=== PATIENT | female | born 1960 | race Caucasian/White ===

== ENCOUNTER 2023-12-22 15:00 | Outpatient (CLI) | payer BC ==
[2023-12-22 16:47] LABS: Anion Gap 15 mmol/L (10-20); BUN (Urea Nitrogen) 22 mg/dL (9.8-20.1); Calc. Creatinine Clearance 0 mL/min (70-130); Carbon Dioxide 24 mmol/L (23-31); Chloride 97 mmol/L (98-107); Estimated GFR 70; Glucose 88 mg/dL (80-115); Potassium 4.2 mmol/L (3.5-5.1); Sodium 132 mmol/L (136-145)
[2023-12-22 16:49] LABS: INR-International Normal Ratio 0.9; Prothrombin Time 12.4 sec (12.0-14.7)
[2023-12-22 16:50] LABS: PTT 39.4 sec (22.9-36.1)
[2023-12-22 17:01] LABS: Hematocrit 39.2 % (36.0-47.0); Hemoglobin 13.5 g/dL (12.0-16.0); Mean Corpuscular HGB CONC 34.4 g/dL (32.0-36.0); Mean Corpuscular Hemoglobin 28.7 pg (27.0-31.0); Mean Corpuscular Volume 83.2 fL (78.0-98.0); Mean Platelet Volume 9.7 fL (7.4-10.4); Platelet Count 360 10x3/uL (130-400); RBC Distribution Width 15.1 % (11.5-14.5); Red Blood Cell (RBC) Count 4.71 mill/uL (4.20-5.40)
[2023-12-22 17:51] LABS: Eosinophils 2 % (0-10); Lymphocytes 37 % (21-51); Monocytes 5 % (0-10); Neutrophil 50 % (42-75); Ovalocytes SLIGHT = 2-5 cells HPF (0-1); Platelet Adequacy Comment Platelets Normal; Poikilocytosis SLIGHT = 6-15 cells HPF (0-5); Reactive Lymphocytes 6 % (0-10)
== END 2023-12-22 15:01 | disposition home or self-care (01) ==
LOC: LABBT 15:00
PROVIDERS: ATTEND Orthopaedic Surgery
DX: Z01.818 Encounter for other preprocedural examination (principal); M16.11 Unilateral primary osteoarthritis, right hip
CPT/HCPCS: 80048; 85025; 85610; 85730; 87081; 93005; 93010

== ENCOUNTER 2023-12-29 05:25 | Inpatient (IN) | payer BC ==
[2023-12-22 15:31] VITALS: BMI 25.9
[2023-12-29] MEDS ORDERED: Tranexamic Acid 1,000 MG/10 ML VIAL ONE (06:19)
[2023-12-29] MEDS ORDERED: Vancomycin 1 GM/200 ML (FROZEN) BAG ONE (06:19)
[2023-12-29] MEDS ORDERED: Sodium Chloride 0.9% 100 ML ONE ×2 (06:19→06:57)
[2023-12-29] MEDS ORDERED: CEFAZOLIN 2 GM VIAL ONE (06:57)
[2023-12-29] MEDS ORDERED: Lidocaine 1.5% w/Epi 1:200K 30 ML VIAL (Epid Use) ONE (07:09)
[2023-12-29] MEDS ORDERED: Rocuronium Bromide 10 MG/ML (10ML VIAL) ONE (07:09)
[2023-12-29] MEDS ORDERED: PROPOFOL 20 ML ONE (07:09)
[2023-12-29] MEDS ORDERED: fentaNYL PF 100 MCG/2 ML SYRINGE ONE (07:09)
[2023-12-29] MEDS ORDERED: Lidocaine 2% PF 5 ML VIAL ONE (07:10)
[2023-12-29] MEDS ORDERED: Promethazine HCl 25 MG SUPP PR PRN (07:15)
[2023-12-29] MEDS ORDERED: Naloxone HCl 0.4 mg/ml Vial IV PRN (07:15)
[2023-12-29] MEDS ORDERED: Naloxone HCl 0.4 mg/ml Vial IVP PRN (07:15)
[2023-12-29] MEDS ORDERED: diphenhydrAMINE 25 MG CAP PO PRN ×2 (07:15→10:56)
[2023-12-29] MEDS ORDERED: Moisturizing Cream (Eucerin) 113 GM JAR TOP PRN (07:15)
[2023-12-29] MEDS ORDERED: diphenhydrAMINE 50 MG/ML VIAL IM PRN (07:15)
[2023-12-29] MEDS ORDERED: diphenhydrAMINE 50 MG/ML VIAL IVP PRN (07:15)
[2023-12-29] MEDS ORDERED: Bupivacaine 0.25% 10 ML VIAL EPIDURAL PRN (07:15)
[2023-12-29] MEDS ORDERED: Ropivacaine 0.2% HCl/PF 20 ML ONE (07:16)
[2023-12-29] MEDS ORDERED: PHENYLEPHRINE-NS 100 MCG/ML 10 ML SYRINGE ONE ×2 (07:37→08:53)
[2023-12-29] MEDS ORDERED: ePHEDrine Sulfate 50 MG/10 ML VIAL ONE (08:06)
[2023-12-29] MEDS ORDERED: Dexamethasone 4 mg/ml Vial ONE (08:14)
[2023-12-29] MEDS ORDERED: Ondansetron HCl/PF 4 MG/2 ML Vial IVP PRN (09:59)
[2023-12-29] MEDS ORDERED: Promethazine HCl 25 MG/ML VIAL IM PRN ×2 (09:59→10:56)
[2023-12-29] MEDS ORDERED: Acetaminophen 325 MG TAB PO PRN (10:56)
[2023-12-29] MEDS ORDERED: Ondansetron PF 4 MG/2 ML Vial IVP PRN (10:56)
[2023-12-29] MEDS: Multivitamin W/ Minerals 1 TAB PO SCH (12:04)
[2023-12-29] MEDS: Aspirin 81 mg Enteric Coated Tablet PO SCH (12:04)
[2023-12-29] MEDS: Ferrous Gluconate 324 MG TAB PO SCH (12:04)
[2023-12-29] MEDS: Senokot S 8.6-50 MG TAB PO SCH (12:04)
[2023-12-29] MEDS: Sodium Chloride 0.9% 1,000 ML IV SCH (12:05)
[2023-12-29] MEDS: Ondansetron PF 4 MG/2 ML Vial IVP PRN (12:41)
[2023-12-29] MEDS: CEFAZOLIN 2 GM in Sodium Chloride 0.9% 100 ML IVPB SCH (14:44)
[2023-12-29] MEDS: Promethazine HCl 25 MG/ML VIAL IM PRN (20:29)
[2023-12-30] MEDS: FENTANYL 500 MCG/10 ML VIAL 500 MCG, Bupivacaine 0.75% 10 ML in Sodium Chloride 0.9% 80 ML EPIDURAL SCH (02:34)
[2023-12-30 05:05] LABS: Hematocrit 34.2 % (36.0-47.0); Hemoglobin 11.6 g/dL (12.0-16.0); Mean Corpuscular HGB CONC 33.9 g/dL (32.0-36.0); Mean Corpuscular Hemoglobin 28.6 pg (27.0-31.0); Mean Corpuscular Volume 84.4 fL (78.0-98.0); Mean Platelet Volume 9.8 fL (7.4-10.4); Platelet Count 272 10x3/uL (130-400); RBC Distribution Width 15.4 % (11.5-14.5); Red Blood Cell (RBC) Count 4.05 mill/uL (4.20-5.40)
[2023-12-30] MEDS ORDERED: HYDROcodone/Acetaminophen 5/325 mg Tablet PO PRN (09:43)
[2023-12-30] MEDS ORDERED: traMADol HCl 50 MG TAB PO PRN ×2 (09:44)
[2023-12-30] MEDS: HYDROcodone/Acetaminophen 5/325 mg Tablet PO PRN (11:07)
[2023-12-30] MEDS: Ketorolac Tromethamine 30 MG (1 mL) VIAL IVP PRN (11:08)
[2023-12-30] MEDS: Zolpidem Tartrate 5 MG TAB PO PRN (23:05)
[2023-12-31 05:35] LABS: Hematocrit 33.7 % (36.0-47.0); Hemoglobin 11.5 g/dL (12.0-16.0); Mean Corpuscular HGB CONC 34.1 g/dL (32.0-36.0); Mean Corpuscular Hemoglobin 29.5 pg (27.0-31.0); Mean Corpuscular Volume 86.4 fL (78.0-98.0); Mean Platelet Volume 9.9 fL (7.4-10.4); Platelet Count 262 10x3/uL (130-400); RBC Distribution Width 15.5 % (11.5-14.5)
[2023-12-31 11:23] VITALS: BP 119/66; TEMP 98.1
== END 2023-12-31 13:38 | disposition home or self-care (01) | DRG 470 ==
LOC: SDC 05:25 → SURG A 10:46 → SDC 12-30 12:08 → SURG A 12-30 12:09
PROVIDERS: ADMIT Orthopaedic Surgery; ATTEND Orthopaedic Surgery
PROC: 0SR90JZ Replacement of Right Hip Joint with Synthetic Substitute, Open Approach (ICD-10-PCS; principal; 2023-12-30)
DX: M17.11 Unilateral primary osteoarthritis, right knee (principal); Z90.710 Acquired absence of both cervix and uterus; Z79.899 Other long term (current) drug therapy; M48.062 Spinal stenosis, lumbar region with neurogenic claudication; I95.9 Hypotension, unspecified; D64.9 Anemia, unspecified
CPT/HCPCS: 36415; 72170; 85027; C1713; C1776; J1100; J1885; J2001; J2405; J2550; J2704; J2795; J3010; J3370-JW; J3490; J7030